=== PATIENT | female | born 1970 | race Caucasian/White ===

== ENCOUNTER 2018-02-15 12:12 | Emergency (ER) | payer OTHER ==
[~2018-02-15] VITALS: Ht 157.5 cm; Wt 52.2 kg
[~2018-02-15 12:12] MED LIST changes: -NITROFURANTOIN50 MG PO
[2018-02-15] MEDS ORDERED: NITROFURANTOIN50 MG PO (12:22)
[2018-02-15] MEDS ORDERED: OXYCONTIN60 MG PO (12:22)
== END 2018-02-15 12:27 | disposition home or self-care (01) ==
LOC: ED 12:12
DX: M25.532 Pain in left wrist (principal); X58.XXXA Exposure to other specified factors, initial encounter; Y93.01 Activity, walking, marching and hiking

== ENCOUNTER → 2018-02-15 | Emergency (ER) | payer OTHER ==
[~2018-02-15] VITALS: Ht 157.5 cm; Wt 52.2 kg
[~2018-02-15] MED LIST: AMLODIPINE BESY10 MG PO; CABERGOLINE0.5 MG PO; COZAAR100 MG PO; CRANBERRY200 MG PO; DILAUDID4 MG PO; FLUNISOLIDE1 SPRAY; KONDREMUL2.5 ML/5 M PO; MOTRIN IB200 MG PO; MULTI VITAMIN1 EACH PO; NITROFURANTOIN50 MG PO; OXYCODONE HCL15 MG PO; OXYCONTIN60 MG PO; OXYCONTIN80 MG PO; SENNA8.6 MG PO
== END | disposition home or self-care (01) ==
LOC: ED 12:38
PROC: 2W3DX1Z Immobilization of Left Lower Arm using Splint (ICD-10-PCS; principal; 2018-02-15)
DX: S52.602A Unspecified fracture of lower end of left ulna, initial encounter for closed fracture (principal); I10 Essential (primary) hypertension; Z88.0 Allergy status to penicillin; Z88.2 Allergy status to sulfonamides; Z79.899 Other long term (current) drug therapy; X58.XXXA Exposure to other specified factors, initial encounter; Y93.01 Activity, walking, marching and hiking
CPT/HCPCS: 29125; 73110; 99283

== ENCOUNTER 2018-04-18 20:20 | Emergency (ER) | payer OTHER ==
[~2018-04-18] VITALS: Ht 157.5 cm; Wt 52.2 kg
--- OUTSIDE RECORDS SUMMARY | ~2018-04-18 | XMS | Encounter Summary ---
Demographics + + + | Address | [address] | | | [place] [address] | + + + | Home Phone | | + + + | Preferred Language | Unknown | + + + | Marital Status | | + + + | Moravian Affiliation | Unknown | + + + | Race | Unknown | + + + | Ethnic Group | Unknown | + + + Author + + + | Author | [facility] | | | and [place] | + + + | Organization | [facility] | | | and [place] | + + + | Address | Unknown | + + + | Phone | Unavailable | + + + Support + + +---------+ + | Name | Relationship | Address | Phone | + + +---------+ + | Maury Crane | ECON | Unknown | | + + +---------+ + Care Team Providers + +------+ + | Care Relief Salesperson Name | Role | Phone | + +------+ + | Shayna Moura MD | PCP | | + +------+ + Reason for Visit + + + | Reason | Comments | + + + | Medication Related | request for call back today about pain medications | + + + Encounter Details +--------+ + + + + | Date | Type | Department | Care Team | Description | +--------+ + + + + | 03/19/ | Telephone | [place] [facility] | Shayna Moura, | Medication Related | | 2018 | | [facility] | [address] [place] [address] | (request for call | | | | [facility] | [place], [place] | back today about | | | | [address] [facility], | [address] | pain medications) | | | | [place] [address] | [phone] | | | | | [phone] | | | +--------+ + + + + Social History + +-------+ +--------+------+ | Tobacco Use | Types | Packs/Day | Years | Date | | | | | Used | | + +-------+ +--------+------+ | Never Smoker | | | | | + +-------+ +--------+------+ + +---+---+---+ | Smokeless Tobacco: | | | | | Never Used | | | | + +---+---+---+ + + +---------+ + | Alcohol Use | Drinks/We | oz/Week | Comments | | | ek | | | + + +---------+ + | No | | | | + + +---------+ + + + + | Sex Assigned at | Date Recorded | | | | + + + | Not on file | | + + + as of this encounter Plan of Treatment +--------+---------+ + + + | Date | Type | Specialty | Care Team | Description | +--------+---------+ + + + | 06/03/ | Office | Primary Care | Sahyna Moura, | | | 2017 | Visit | | [address] [place] [address] | | | | | | [place] | | | | | | [address] | | | | | | [phone] | | | | | | | | +--------+---------+ + + + as of this encounter Visit Diagnoses + + | Diagnosis | + + | Chronic left shoulder pain | + + | Pain in joint, shoulder region | + +"
--- OUTSIDE RECORDS SUMMARY | ~2018-04-18 | XMS | Encounter Summary ---
Demographics + + + | Address | [address] | | | [place] [address] | + + + | Home Phone | | + + + | Preferred Language | Unknown | + + + | Marital Status | | + + + | Christian Affiliation | Unknown | + + + | Race | Unknown | + + + | Ethnic Group | Unknown | + + + Author + + + | Author | [facility] | | | and [place] | + + + | Organization | [facility] | | | and [place] | [...] Team Providers + +------+ + | Care Microgrinder Operator Name | Role | Phone | + +------+ + | Shayna Moura MD | PCP | | + +------+ + Reason for Visit + + + | Reason | Comments | + + + | Medication Refill | | + + + Encounter Details +--------+--------+ + + + | Date | Type | Department | Care Team | Description | +--------+--------+ + + + | 03/25/ | Refill | [place] [facility] | Shayna Moura, | Medication Refill | | 2017 | | [facility] | [address] | | | | | [facility] | [place], [place] | | | | | [address] [place], | [address] | | | | | [place] [address] | [phone] | | | | | [phone] | | | +--------+--------+ + + + Social History + +-------+ [...] 06/03/ | Office | Primary Care | Shayna Moura, | | | 2017 | Visit | | [address] [facility] | | | | | | [place], [place] | | | | | | [address] | | | | | | [phone] | | | | | | | | +--------+---------+ + + + as of this encounter Visit Diagnoses Not on filein this encounter"
--- OUTSIDE RECORDS SUMMARY | ~2018-04-18 | XMS | Encounter Summary ---
Demographics + + + | Address | [address] | | | [place] [address] | + + + | Home Phone | | + + + | Preferred Language | Unknown | + + + | Marital Status | | + + + | Quaker Affiliation | Unknown | + + + | Race | Unknown | + + + | Ethnic Group | Unknown | + + + Author + + + | Author | [facility] | | | and [place] | + + + | Organization | [facility] | | | and [place] [...] Team Providers + +------+ + | Care Med Spa Manager Name | Role | Phone | + +------+ + | Shayna Moura MD | PCP | | + +------+ + Reason for Visit +--------+ + | Reason | Comments | +--------+ + | Other | Broken Wrist | +--------+ + Encounter Details +--------+ + + + + | Date | Type | Department | Care Team | Description | +--------+ + + + + | 02/20/ | Telephone | [facility] [facility] | Shayna Moura, | Other (Broken Wrist | | 2018 | | [facility] | [address] [place] | ) | | | | [facility] [address] | [place], [place] | | | | | [address] [place], | [address] | | | | | [place] [address] | [phone] | | | | | [phone] | | | +--------+ + + + [...] 2017 | Visit | | [address] [facility] | | | | | | [place], [place] | | | | | | [address] | | | | | | [phone] | | | | | | | | +--------+---------+ + + + as of this encounter Visit Diagnoses Not on filein this encounter"
--- OUTSIDE RECORDS SUMMARY | ~2018-04-18 | XMS | Encounter Summary ---
Demographics + + + | Address | [address] | | | [place] [address] | + + + | Home Phone | | + + + | Preferred Language | Unknown | + + + | Marital Status | | + + + | Pentecostal Affiliation | Unknown | + + + | Race | Unknown | + + + | Ethnic Group | Unknown | + + + Author + + + | Author | [facility] | | | and [place] | + + + | Organization | [facility] | | | and [place] [...] Team Providers + +------+ + | Care Program Aide Name | Role | Phone | + +------+ + | Shayna Moura MD | PCP | | + +------+ + Reason for Visit + + + | Reason | Comments | + + + | Medication Refill | | + + + Encounter Details +--------+ + + + + | Date | Type | Department | Care Team | Description | +--------+ + + + + | 03/18/ | Telephone | [facility] | Shayna Moura, | Medication Refill | | 2018 | | [facility] | MD [address] | | | | | [facility] [address] | [place], [place] | | | | | [address] [place], | [address] | | | | | [place] [address] | [phone] | | | | | [phone] | | | +--------+ + + + [...] Care | Shayna Moura, | | | 2018 | Visit | | [address] [place] [address] | | | | | | [place], [place] | | | | | | [address] | | | | | | [phone] | | | | | | | | +--------+---------+ + + + as of this encounter Visit Diagnoses Not on filein this encounter"
--- OUTSIDE RECORDS SUMMARY | ~2018-04-18 | XMS | Encounter Summary ---
Demographics + + + | Address | [address] | | | [place] [address] | + + + | Home Phone | | + + + | Preferred Language | Unknown | + + + | Marital Status | | + + + | Episcopalian Affiliation | Unknown | + + + | Race | Unknown | + + + | Ethnic Group | Unknown | + + + Author + + + | Author | [facility] | | | and [place] | + + + | Organization | [facility] | | | and [place] | + [...] Team Providers + +------+ + | Care Manager Intensive Care Unit Name | Role | Phone | + [...] Description | +--------+--------+ + + + | 03/24/ | Refill | [place] [facility] | Shayna Moura, | Medication Refill | | 2017 | | [facility] | [address] | | | | | [facility] [address] | [place], [place] | | | | | [address] [place], | [address] | | | | | [place] [address] | [phone] | | | | | [phone] | | | +--------+--------+ + + + [...] 2017 | Visit | | [address] [facility] | | | | | | [place], [place] | | | | | | [address] | | | | | | [phone] | | | | | | | | +--------+---------+ + + + as of this encounter Visit Diagnoses Not on filein this encounter"
--- OUTSIDE RECORDS SUMMARY | ~2018-04-18 | XMS | Encounter Summary ---
Demographics + + + | Address | [address] | | | [place] [address] | + + + | Home Phone | | + + + | Preferred Language | Unknown | + + + | Marital Status | | + + + | Sikhism Affiliation | Unknown | + + + | Race | Unknown | + + + | Ethnic Group | Unknown | + + + Author + + + | Author | [facility] | | | and [place] | + + + | Organization | [facility] | | | and [place] [...] Team Providers + +------+ + | Care Pen Tester Name | Role | Phone | + +------+ + | Shayna Moura MD | PCP | | + +------+ + Reason for Visit +--------+ + | Reason | Comments | +--------+ + | Other | Pt expecting call back. | +--------+ + Encounter Details +--------+ + + + + | Date | Type | Department | Care Team | Description | +--------+ + + + + | 03/23/ | Telephone | [place] [facility] | Shayna Moura, | Other (Pt expecting | | 2018 | | [facility] | MD [address] [facility] | call back. ) | | | | [facility]ICAL [facility] | [place], [place] | | | | | [address] [place], | [address] | | | | | [place] [address] | [phone] | | | | | [phone] | | | +--------+ + + + [...] 2017 | Visit | | [address] [place] | | | | | | [place] | | | | | | [address] | | | | | | [phone] | | | | | | | | +--------+---------+ + + + as of this encounter Visit Diagnoses Not on filein this encounter"
--- OUTSIDE RECORDS SUMMARY | ~2018-04-18 | XMS | Encounter Summary ---
Demographics + + + | Address | [address] | | | [place] [address] | + + + | Home Phone | | + + + | Preferred Language | Unknown | + + + | Marital Status | | + + + | Denominational Affiliation | Unknown | + + + | Race | Unknown | + + + | Ethnic Group | Unknown | + + + Author + + + | Author | [facility] | | | and [place] | + + + | Organization | [facility] | | | and [place] [...] Team Providers + +------+ + | Care Material Handling Equipment Stevedore Name | Role | Phone | + [...] Medication Related | | 2018 | | [facility] | [address] [place] [address] | (request for call | | | | MEDICAL CLINIC [address] | [place], [place] | back today about | | | | [address] [facility], | [address] | pain medications) | | | | [place] [address] | [phone] | | | | | [phone] | | | +--------+ + + + [...] | 2017 | Visit | | [address] [place] [address] | | | | | | [place] | | | | | | [address] | | | | | | [phone] | | | | | | | | +--------+---------+ + + + as of this encounter Visit Diagnoses + + | Diagnosis | + + | Chronic left shoulder pain | + + | Pain in joint, shoulder region | + +"
--- OUTSIDE RECORDS SUMMARY | ~2018-04-18 | XMS | Encounter Summary ---
Demographics + + + | Address | [address] | | | [place] [address] | + + + | Home Phone | | + + + | Preferred Language | Unknown | + + + | Marital Status | | + + + | Zoroastrian Affiliation | Unknown | + + + | Race | Unknown | + + + | Ethnic Group | Unknown | + + + Author + + + | Author | [facility] | | | and [place] | + + + | Organization | [facility] | | | and [place] | [...] Team Providers + +------+ + | Care Poultryman Name | Role | Phone | + +------+ + | Shayna Moura MD | PCP | | + +------+ + Reason for Visit + + + | Reason | Comments | + + + | Follow-up | 6 WEEK | + + + Encounter Details +--------+---------+ + + + | Date | Type | Department | Care Team | Description | +--------+---------+ + + + | 02/26/ | Office | [facility] | Shayna Moura, | Chronic left | | 2018 | Visit | [facility] | [address] | shoulder pain | | | | MEDICAL CL[facility] [address] | [place], [place] | (Primary Dx); Closed | | | | [address] [place], | [address] | fracture of left | | | | [place] [address] | [phone] | wrist with routine | | | | [phone] | | healing, subsequent | | | | | | encounter | +--------+---------+ + + + Social History + +-------+ [...] + + + as of this encounter Last Filed Vital Signs + + + + | Vital Sign | Reading | Time Taken | + + + + | Blood Pressure | 140/82 | 02/26/2018 1049 PDT | + + + + | Pulse | 99 | 02/26/20181048 PDT | + + + + | Temperature | 36.8 C (98.2 F) | 02/26/20181048 PDT | + + + + | Respiratory Rate | 18 | 02/26/20181048 PDT | + + + + | Oxygen Saturation | 99% | 02/26/20181048 PDT | + + + + | Inhaled Oxygen | - | - | | Concentration | | | + + + + | Weight | 54.7 kg (120 lb 9.6 | 02/26/20181048 PDT | | | oz) | | + + + + | Height | 157.5 cm (5' 2") | 02/26/2018 1049 PDT | + + + + | Body Mass Index | 22.06 | 02/26/2018 1049 PDT | + + + + in this encounter Instructions Patient Instructions - Shayna Moura MD - 02/26/2018 1100 PDTNo change in medications. Follow up with me in 2 monthsin this encounter Progress Notes Shayna Moura MD - 02/26/2018 1100 PDTFormatting of this note may be different from the original. Patient ID: America Castellanos is a 48 y.o. year old female Chief Complaint: Chief Complaint Patient presents with Follow-up 6 WEEK Assessment 1. Chronic left shoulder pain - oxyCODONE (OXYCONTIN) 60 mg ER abuse-deterrent tablet; Take 1 tablet by mouth 3 times lizzeth ly. Dispense: 84 tablet; Refill: 0 - oxyCODONE (ROXICODONE) 15 mg immediate release tablet; 1 tablet q 4 hours prn Dispense: 168 tablet; Refill: 0 2. Closed fracture of left wrist with routine healing, subsequent encounter Plan:Opioid regimen authorize for 2 more months. She will then follow-up with me to discus s opioid taper. Subjective: HPI She fractured her left wrist in a dog incident. This caused a pause in her physical therap y for her left shoulder. She's been having more trouble sleeping because of the wrist pain. She wanted to temporarily increase the short acting oxycodone. She will plan to follow-up with me in 2 months to discuss an opioid taper. Current Outpatient Prescriptions Medication Sig Dispense Refill amLODIPine (NORVASC) 10 MG tablet TAKE 1 TABLET BY MOUTH EVERY DAY 30 tablet 0 flunisolide (NASALIDE) 25 mcg/nasal spray (0.025%) 2 sprays by Nasal route every 12 mert rs. 25 mL 5 losartan (COZAAR) 100 MG tablet TAKE 1 TABLET BY MOUTH EVERY DAY 30 tablet 11 nitrofurantoin (MACRODANTIN) 50 mg capsule TAKE 1 CAPSULE BY MOUTH EVERY NIGHT AT BEDTI ME 30 capsule 11 oxyCODONE (OXYCONTIN) 60 mg ER abuse-deterrent tablet Take 1 tablet by mouth 3 times da pan. 84 tablet 0 oxyCODONE (ROXICODONE) 15 mg immediate release tablet 1 tablet q 4 hours prn 168 tablet 0 No current facility-administered medications for this visit. Patient Active Problem List Diagnosis Recurrent sinusitis Shoulder pain, left Hypertension Nephrocalcinosis Pain medication agreement History reviewed. No pertinent family history. Social History Social History Marital status: Spouse name: N/A Number of children: N/A Years of education: N/A Occupational History Not on file. Social History Main Topics Smoking status: Never Smoker Smokeless tobacco: Never Used Alcohol use No Drug use: No Sexual activity: Not on file Other Topics Concern Not on file Social History Narrative No narrative on file Electronic chart was reviewed and updated as appropriate including: active problem list, me dication list, allergies, notes from last encounter LUIS EDUARDO Wondered if she should have a bone density test. She still has her ovaries and believes sh sarah is ovulating but has undergone hysterectomy. I do not feel strongly it was necessary at t his point but we may discuss that again on a follow-up visit. Objective: Vitals: BP 140/82 | Pulse 99 | Temp 36.8 C (98.2 F) (Temporal) | Resp 18 | Ht 1.575 m (5' 2 ") | Wt 54.7 kg (120 lb 9.6 oz) | LMP 12/18/2012 | SpO2 99% | ? No | BMI 2 2.06 kg/m General: Well-developed, well-nourished, no acute distress Skin: Anicteric, no rash Neuro: Normal behavior and affect Ana M Moura MDin this encounter Plan of Treatment +--------+---------+ + + + | Date | Type | Specialty | Care Team | Description | +--------+---------+ + + + | 06/03/ | Office | Primary Care | Shayna Moura, | | | 2017 | Visit | | [address] [place] [address] | | | | | | [place] | | | | | | [address] | | | | | | [phone] | | | | | | | | +--------+---------+ + + + as of this encounter Visit Diagnoses + + | Diagnosis | + + | Chronic left shoulder pain - Primary | + + | Pain in joint, shoulder region | + + | Closed fracture of left wrist with routine healing, subsequent encounter | + +
--- OUTSIDE RECORDS SUMMARY | ~2018-04-18 | XMS | Encounter Summary ---
Demographics + + + | Address | [address] | | | [place] [address] | + + + | Home Phone | | + + + | Preferred Language | Unknown | + + + | Marital Status | | + + + | Presybeterian Affiliation | Unknown | + + + | Race | Unknown | + + + | Ethnic Group | Unknown | + + + Author + + + | Author | [facility] | | | and [place] | + + + | Organization | [facility] | | | and [place] [...] Team Providers + +------+ + | Care Office Assistance Name | Role | Phone | + +------+ + | Shayna Moura MD | PCP | | + +------+ + Reason for Visit + + + | Reason | Comments | + + + | Medication Prior | Oxycodone HCL 15 mg | | Authorization | | + + + Encounter Details +--------+ + + + + | Date | Type | Department | Care Team | Description | +--------+ + + + + | 01/26/ | Telephone | [facility] | Shayna Moura, | Medication Prior | | 2018 | | [facility] | [address] | Authorization | | | | MEDICAL CL[facility] [address] | [facility] [place] | (Oxycodone HCL 15 mg | | | | [address] [place], | [address] | ) | | | | [place] [address] | [phone] | | | | | [phone] | | | +--------+ + + + [...] | | 2017 | Visit | | [address] [place] [address] | | | | | | [place] | | | | | | [address] | | | | | | [phone] | | | | | | | | +--------+---------+ + + + as of this encounter Visit Diagnoses Not on filein this encounter"
--- OUTSIDE RECORDS SUMMARY | ~2018-04-18 | XMS | Clinical Summary ---
Demographics + + + | Address | [address] | | | [place] [address] | + + + | Home Phone | | + + + | Preferred Language | Unknown | + + + | Marital Status | | + + + | Restorationist Affiliation | Unknown | + + + | Race | Unknown | + + + | Ethnic Group | Unknown | + + + Author + + + | Author | [facility] | | | and [place] | + + + | Organization | [facility] | | | and [place]ana [...] Team Providers + +------+ + | Care Computing Systems Mechanic Name | Role | Phone | + +------+ + | Shayna Moura MD | PP | | + +------+ + Allergies + + + + + + | Active Allergy | Reactions | Severity | Noted | Comments | | | | | Date | | + + + + + + | Hydrochlorothiazide | Other (See Comments) | | 07/28/20 | | | | | | 17 | | + + + + + + | Lisinopril | Other (See Comments) | | 07/28/20 | Cough | | | | | 17 | | + + + + + + | Morphine | Other (See Comments) | | 07/28/20 | Blurry vision | | | | | 17 | consistently when | | | | | | she takes morphine | | | | | | sulfate | + + + + + + | Penicillins | Rash | High | 01/02/20 | | | | | | 13 | | + + + + + + | Sulfa Antibiotics | Nausea And Vomiting | | 07/28/20 | | | | | | 17 | | + + + + + + Current Medications + + +---------+---------+------+------+-------+ | Prescription | Sig. | Disp. | Refills | Star | End | Statu | | | | | | t | Date | s | | | | | | Date | | | + + +---------+---------+------+------+-------+ | losartan (COZAAR) | TAKE 1 TABLET BY | 30 | 11 | 01/1 | | Activ | | 100 MG tablet | MOUTH EVERY DAY | tablet | | 0/20 | | e | | | | | | 18 | | | + + +---------+---------+------+------+-------+ | flunisolide | 2 sprays by Nasal | 25 mL | 5 | 02/0 | | Activ | | (NASALIDE) 25 | route every 12 | | | 2/20 | | e | | mcg/nasal spray | hours. | | | 18 | | | | (0.025%) | | | | | | | + + +---------+---------+------+------+-------+ | nitrofurantoin | TAKE 1 CAPSULE BY | 30 | 11 | 02/1 | | Activ | | (MACRODANTIN) 50 mg | MOUTH EVERY NIGHT AT | capsule | | 6/20 | | e | | capsule | BEDTIME | | | 18 | | | + + +---------+---------+------+------+-------+ | oxyCODONE | Take 1 tablet by | 84 | 0 | / | | Activ | | (OXYCONTIN) 60 mg ER | mouth 3 times daily. | tablet | | 2/20 | | e | | abuse-deterrent | | | | 18 | | | | tabletIndications: | | | | | | | | Chronic left | | | | | | | | shoulder pain | | | | | | | + + +---------+---------+------+------+-------+ | oxyCODONE | 1 tablet q 4 hours | 168 | 0 | 07/1 | | Activ | | (ROXICODONE) 15 mg | prn | tablet | | 2/20 | | e | | immediate release | | | | 18 | | | | tabletIndications: | | | | | | | | Chronic left | | | | | | | | shoulder pain | | | | | | | + + +---------+---------+------+------+-------+ | amLODIPine | TAKE 1 TABLET BY | 90 | 3 | 07/1 | | Activ | | (NORVASC) 10 MG | MOUTH EVERY DAY | tablet | | 8/20 | | e | | tablet | | | | 18 | | | + + +---------+---------+------+------+-------+ | amLODIPine | TAKE 1 TABLET BY | 30 | 0 | 06/1 | 07/1 | Disco | | (NORVASC) 10 MG | MOUTH EVERY DAY | tablet | | 4/20 | 7/20 | ntinu | | tablet | | | | 18 | 18 | ed | + + +---------+---------+------+------+-------+ | amLODIPine | TAKE 1 TABLET BY | 90 | 1 | 07/1 | 07/1 | Disco | | (NORVASC) 10 MG | MOUTH EVERY DAY | tablet | | 7/20 | 8/20 | ntinu | | tablet | | | | 18 | 18 | ed | + + +---------+---------+------+------+-------+ Active Problems + + | Patient Care Coordination Note | + + | MORPHINE (MS CONTIN) 100MG ER 1 TAB TID #84 / LAST FILLED 05/25/18 / NEXT FILL DUE | | 06/22/18OXYCODONE (ROXICODONE) 15MG IR 1 Q6H PRN #112 / LAST FILLED 05/25/18 / NEXT FILL | | DUE 06/22/18LAST UDS: 05/29/2017 | |LAST UDS: 05/29/2017 | + + + + + | Problem | Noted Date | + + + | Pain medication agreement | 09/15/2017 | + + + | Recurrent sinusitis | 07/28/2017 | + + + + + | Overview: S/p FESS | + + + + + | Shoulder pain, left | 07/28/2017 | + + + + + | Overview: S/p rotator cuff repair 07/11/08, 11/29/15 | + + + + + | Hypertension | 07/28/2017 | + + + | Nephrocalcinosis | 07/28/2017 | + + + Encounters +--------+ + + + + | Date | Type | Specialty | Care Team | Description | +--------+ + + + + | 03/25/ | Refill | | Shayna Moura, | Medication Refill | | 2017 | | | MD | | +--------+ + + + + | 03/24/ | Refill | | Shayna Moura, | Medication Refill | | 2017 | | | MD | | +--------+ + + + + | 03/23/ | Telephone | | Shayna Moura, | Other (Pt expecting | | 2017 | | | MD | call back. ) | +--------+ + + + + | 03/19/ | Refill | Shayna Hernandez, | Medication Refill | | 2018 | | | MD | | +--------+ + + + + | 03/19/ | Telephone | | Shayna Moura, | Medication Related | | 2017 | | | MD | (request for call | | | | | | back today about | | | | | | pain medications) | +--------+ + + + + | 03/18/ | Telephone | | Shayna Moura, | Medication Refill | | 2018 | | | MD | | +--------+ + + + + | 02/26/ | Office | | Shayna Moura, | Chronic left | | 2018 | Visit | | MD | shoulder pain | | | | | | (Primary Dx); Closed | | | | | | fracture of left | | | | | | wrist with routine | | | | | | healing, subsequent | | | | | | encounter | +--------+ + + + + | 02/20/ | Telephone | | Shayna Moura, | Other (Broken Wrist | | 2017 | | | MD | ) | +--------+ + + + + | 02/19/ | Refill | | Shayna Moura, | Medication Refill | 2017 | | | MD | | +--------+ + + + + | 01/26/ | Telephone | | Shayna Moura, | Medication Prior | 2017 | | | MD | Authorization | | | | | | (Oxycodone HCL 15 mg | | | | | | ) | +--------+ + + + + from Last 3 Months Immunizations + + + + | Name | Dates Previously Given | Next Due | + + + + | INFLUENZA PF | 06/19/2012 | | | TRIVALENT(PED/ADOL/A | | | | DULT), PSKT | | | + + + + | TD W/O PRESERVATIVE, | 11/09/2008 | | | (ADOL/ADULT) | | | + + + + Social History + [...] on file | | + + + Last Filed Vital Signs + + + + | Vital Sign | Reading | Time Taken | + + + + | Blood Pressure | 140/82 | 02/26/2018 1049 PDT | + + + + | Pulse | 99 | 02/26/2018 1049 PDT | + + [...] Height | 157.5 cm (5' 2") | 02/26/20181048 PDT | + + + + | Body Mass Index | 22.06 | 02/26/2018 1049 PDT | + + + + Plan of Treatment +--------+---------+ + + + | Date | Type | Specialty | Care Team | Description | +--------+---------+ + + + | 06/03/ | Office | | Shayna Moura, | | | 2018 | Visit | | [address] [place] [address] | | | | | | [place] | | | | | | [address] | | | | | | [phone] | | | | | | | | +--------+---------+ + + + + + + + + | Health Maintenance | Due Date | Last Done | Comments | + + + + + | PRIMARY CARE | | | | | OUTREACH-MODERATE | 8 | | | | RISK EVERY 1 YEAR | | | | + + + + + | Cervical Cancer | | | | | Screening (Pap) | 8 | | | + + + + + | Vaccine: | | 11/09/2008 | | | Dtap/Tdap/Td (1 - | 9 | | | | Tdap) | | | | + + + + + | BREAST CANCER | | | | | SCREENING (MAMM Q2 | 8 | | | | YEARS 50-74) | | | | + + + + + | Colorectal Cancer | | | | | Screening | 8 | | | | (Colonoscopy) | | | | + + + + + | Vaccine: Influenza | | 06/19/2012 | | | (#1) | 8 | | | + + + + + Procedures + +--------+ + + + | Procedure Name | Priori | Date/Time | Associated Diagnosis | Comments | | | ty | | | | + +--------+ + + + | IMAGING REPORT - | | 03/16/2018 | | Results for this | | EXTERNAL SCAN | | 0000 PDT | | procedure are in the | | | | | | results section. | + +--------+ + + + from Last 3 Months Results IMAGING REPORT - EXTERNAL SCAN (03/16/2018) + + + | Narrative | Performed At | + + + | Ordered by an | | | unspecified provider. | | + + + from Last 3 Months Insurance + +--------+ +------+ +---------+ | Payer | Benefi | Subscriber | Type | Phone | Address | | | t Plan | ID | | | | | | / | | | | | | | Group | | | | | + +--------+ +------+ +---------+ | BCBS | BCBS | [id number] | PPO | | | | | OUT OF | 9 | | | | | | STATE | | | | | | | PPO | | | | | + +--------+ +------+ +---------+ | [place] | [place] | [id number] | PPO | [phone] | | | [place]OUR | | | [phone] | | | | E | | | | | | | FIRST | | | | | | | CHOICE | | | | | + +--------+ +------+ +---------+ + +--------+ +--------+ + + | Guarantor Name | Accoun | Relation to | Date | Phone | Billing Address | | | t Type | Patient | of | | | | | | | | | | + +--------+ +--------+ + + | LANNY CASTELLANOS | Person | Self [birth year] | Home: | [address] | | [place] | al/Fam | | 1970 | [phone] | [place] [address] | | | pan | | | 1987 | | + +--------+ +--------+ + + | LANNY CASTELLANOS | Person | Self | [birth year] | Home: | [address] | | [place] | al/Jamie | | 1969 | [phone] | [place] [address] | | | pan | | | 1987 | | + +--------+ +--------+ + +
--- OUTSIDE RECORDS SUMMARY | ~2018-04-18 | XMS | Encounter Summary ---
Demographics + + + | Address | [address] | | | [place] [address] | + + + | Home Phone | | + + + | Preferred Language | Unknown | + + + | Marital Status | | + + + | Jainism Affiliation | Unknown | + + + | Race | Unknown | + + + | Ethnic Group | Unknown | + + + Author + + + | Author | [facility] | | | and [place]ana | + + + | Organization | [facility] | | | and Milanana [...] Team Providers + +------+ + | Care Supervisor Frame Assembly Name | Role | Phone | + [...] | [facility] | [address] [place] | ) | | | | MEDICAL CL[facility] [address] | [place], [place] | | | | | [address] [place], | [address] | | | | | [place] [address] | [phone] | | | | | [phone] | | | +--------+ + + + [...] 2017 | Visit | | [address] [facility] | | | | | | [place], [place] | | | | | | [address] | | | | | | [phone] | | | | | | | | +--------+---------+ + + + as of this encounter Visit Diagnoses Not on filein this encounter"
--- OUTSIDE RECORDS SUMMARY | ~2018-04-18 | XMS | Encounter Summary ---
Demographics + + + | Address | [address] | | | [place] [address] | + + + | Home Phone | | + + + | Preferred Language | Unknown | + + + | Marital Status | | + + + | Muslim Affiliation | Unknown | + + + | Race | Unknown | + + + | Ethnic Group | Unknown | + + + Author + + + | Author | [facility] | | | and [place]ana | + + + | Organization | [facility] | | | and [...] Team Providers + +------+ + | Care Die Storage Clerk Name | Role | Phone | + [...] | | [address] [place], | [address] | fracture of left | | | | [place] [address] | [phone] | wrist with routine | | | | [phone] | | healing, subsequent | | | [...] | 2017 | Visit | | [address] [place] [address] | | | | | | [place] | | | | | | [address] | | | | | | [phone] | | | | | | | [...]
--- OUTSIDE RECORDS SUMMARY | ~2018-04-18 | XMS | Encounter Summary ---
Demographics + + + | Address | [address] | | | [place] [address] | + + + | Home Phone | | + + + | Preferred Language | Unknown | + + + | Marital Status | | + + + | Rastafarian Affiliation | Unknown | + + + | Race | Unknown | + + + | Ethnic Group | Unknown | + + + Author + + + | Author | [facility] | | | and [place]ana | + + + | Organization | [facility] | | | and Milanana [...] Team Providers + +------+ + | Care Safety Deposit Supervisor Name | Role | Phone | + [...] Refill | | 2017 | | [facility] | [address] | | | | | MEDICAL CLIN[facility] [address] | [place], [place] | | | | | [address] [place], | [address] | | | | | [place] [address] | [phone] | | | | | [phone] | | | +--------+--------+ + + + [...] 2017 | Visit | | [address] [facility] | | | | | | [place], [place] | | | | | | [address] | | | | | | [phone] | | | | | | | | +--------+---------+ + + + as of this encounter Visit Diagnoses Not on filein this encounter"
--- OUTSIDE RECORDS SUMMARY | ~2018-04-18 | XMS | Encounter Summary ---
Demographics + + + | Address | [address] | | | [place] [address] | + + + | Home Phone | | + + + | Preferred Language | Unknown | + + + | Marital Status | | + + + | Quaker Affiliation | Unknown | + + + | Race | Unknown | + + + | Ethnic Group | Unknown | + + + Author + + + | Author | [facility] | | | and [place]ana | + + + | Organization | [facility] | | | and [...] Team Providers + +------+ + | Care Weigh Boss Name | Role | Phone | + [...] Description | +--------+--------+ + + + | 02/19/ | Refill | [place] | Shayna Moura, | Medication Refill | | 2017 | | [facility] | [address] | | | | | MEDICAL CL[facility] | [place], [place] | | | | | [address] [place], | [address] | | | | | [place] [address] | [phone] | | | | | [phone] | | | +--------+--------+ + + + [...] 2017 | Visit | | [address] [facility] | | | | | | [place], [place] | | | | | | [address] | | | | | | [phone] | | | | | | | | +--------+---------+ + + + as of this encounter Visit Diagnoses Not on filein this encounter"
--- OUTSIDE RECORDS SUMMARY | ~2018-04-18 | XMS | Encounter Summary ---
Demographics + + + | Address | [address] | | | [place] [address] | + + + | Home Phone | | + + + | Preferred Language | Unknown | + + + | Marital Status | | + + + | Congregational Affiliation | Unknown | + + + | Race | Unknown | + + + | Ethnic Group | Unknown | + + + Author + + + | Author | [facility] | | | and [place]ana | + + + | Organization | [facility] | | | and [...] Team Providers + +------+ + | Care Dental Hygiene Instructor Name | Role | Phone | + [...] Description | +--------+--------+ + + + | 03/19/ | Refill | [place] | Shayna Moura, | Medication Refill | | 2017 | | [facility] | [address] | | | | | MEDICAL CLIN[facility] [address] | [place], [place] | | | | | [address] [place], | [address] | | | | | [place] [address] | [phone] | | | | | [phone] | | | +--------+--------+ + + + [...] 2017 | Visit | | [address] [facility] | | | | | | [place], [place] | | | | | | [address] | | | | | | [phone] | | | | | | | | +--------+---------+ + + + as of this encounter Visit Diagnoses + + | Diagnosis | + + | Chronic left shoulder pain | + + | Pain in joint, shoulder region | + +"
--- OUTSIDE RECORDS SUMMARY | ~2018-04-18 | XMS | Encounter Summary ---
Demographics + + + | Address | [address] | | | [place] [address] | + + + | Home Phone | | + + + | Preferred Language | Unknown | + + + | Marital Status | | + + + | Adventism Affiliation | Unknown | + + + | Race | Unknown | + + + | Ethnic Group | Unknown | + + + Author + + + | Author | [facility] | | | and [place]ana | + + + | Organization | [facility] | | | and [...] Team Providers + +------+ + | Care Post Anesthesia Nurse Name | Role | Phone | + [...] [facility] | MD [address] [facility] | call back. ) | | | | MEDICAL CLINIC [address] | [place], [place] | | | | | [address] [place], | [address] | | | | | [place] [address] | [phone] | | | | | [phone] | | | +--------+ + + + [...] | Visit | | [address] [place] | | | | | | [place] | | | | | | [address] | | | | | | [phone] | | | | | | | | +--------+---------+ + + + as of this encounter Visit Diagnoses Not on filein this encounter"
--- OUTSIDE RECORDS SUMMARY | ~2018-04-18 | XMS | Encounter Summary ---
Demographics + + + | Address | [address] | | | [place] [address] | + + + | Home Phone | | + + + | Preferred Language | Unknown | + + + | Marital Status | | + + + | Moravian Affiliation | Unknown | + + + | Race | Unknown | + + + | Ethnic Group | Unknown | + + + Author + + + | Author | [facility] | | | and [place] | + + + | Organization | [facility] | | | and [...] Team Providers + +------+ + | Care Software Development Advisor Name | Role | Phone | + [...] Refill | | 2017 | | [facility] | [address] | | | | | MEDICAL CLIN[address] | [place], [place] | | | | | [address] [place], | [address] | | | | | [place] [address] | [phone] | | | | | [phone] | | | +--------+--------+ + + + [...] 2017 | Visit | | [address] [facility] | | | | | | [place], [place] | | | | | | [address] | | | | | | [phone] | | | | | | | | +--------+---------+ + + + as of this encounter Visit Diagnoses Not on filein this encounter"
--- OUTSIDE RECORDS SUMMARY | ~2018-04-18 | XMS | Encounter Summary ---
Demographics + + + | Address | [address] | | | [place] [address] | + + + | Home Phone | | + + + | Preferred Language | Unknown | + + + | Marital Status | | + + + | Christianity Affiliation | Unknown | + + + | Race | Unknown | + + + | Ethnic Group | Unknown | + + + Author + + + | Author | [facility] | | | and [place]ana | + + + | Organization | [facility] | | | and [place]ana | [...] Team Providers + +------+ + | Care Geographic Information Systems Engineer Name | Role | Phone | + [...] | [facility] | [address] | Authorization | | | | MEDICAL CLINIC [address] | [facility], [place] | (Oxycodone HCL 15 mg | | | | [address] [place], | [address] | ) | | | | [place] [address] | [phone] | | | | | [phone] | | | +--------+ + + + [...] | | 2017 | Visit | | [address] [place] [address] | | | | | | [place] | | | | | | [address] | | | | | | [phone] | | | | | | | | +--------+---------+ + + + as of this encounter Visit Diagnoses Not on filein this encounter"
--- OUTSIDE RECORDS SUMMARY | ~2018-04-18 | XMS | Encounter Summary ---
Demographics + + + | Address | [address] | | | [place] [address] | + + + | Home Phone | | + + + | Preferred Language | Unknown | + + + | Marital Status | | + + + | Sabianism Affiliation | Unknown | + + + | Race | Unknown | + + + | Ethnic Group | Unknown | + + + Author + + + | Author | [facility] | | | and [place]ana | + + + | Organization | [facility] | | | and [place]ana [...] Team Providers + +------+ + | Care Neckties Painter Name | Role | Phone | + [...] Refill | | 2017 | | [facility] | [address] | | | | | MEDICAL CLIN[address] | [place], [place] | | | | | [address] [place], | [address] | | | | | [place] [address] | [phone] | | | | | [phone] | | | +--------+--------+ + + + [...] Visit | | [address] [facility] | | | | | | [place], [place] | | | | | | [address] | | | | | | [phone] | | | | | | | | +--------+---------+ + + + as of this encounter Visit Diagnoses + + | Diagnosis | + + | Chronic left shoulder pain | + + | Pain in joint, shoulder region | + +"
--- OUTSIDE RECORDS SUMMARY | ~2018-04-18 | XMS | Clinical Summary ---
Demographics + + + | Address | [address] | | | [place] [address] | + + + | Home Phone | | + + + | Preferred Language | Unknown | + + + | Marital Status | | + + + | Methodist Affiliation | Unknown | + + + | Race | Unknown | + + + | Ethnic Group | Unknown | + + + Author + + + | Author | [facility] | | | and [place]ana | + + + | Organization | [facility] | | | and [place]ana | [...] Team Providers + +------+ + | Care Director Perioperative Name | Role | Phone | + [...] | 2018 | Visit | | [address] [place] [address] | | | | | | [place] | | | | | | [address] | | | | | | [phone] | | | | | | | [...] +------+ +---------+ | BCBS | BCBS | [id number] | PPO | | | | | OUT OF | 9 | | | | | | STATE | | | | | | | PPO | | | | | + +--------+ +------+ +---------+ | [place] | [place] | [id number] | PPO | [phone] | | [...] | 1970 | [phone] | [place] [address] | | | pan | | | 1987 | | + +--------+ +--------+ + + | LANNY CASTELLANOS | Person | Self | [birth year] | Home: | [address] | | [place] | al/[place]ie | | 1969 | [phone] | [place] [address] | | | pan | | | 1987 | | + +--------+ +--------+ + +
--- OUTSIDE RECORDS SUMMARY | ~2018-04-18 | XMS | Encounter Summary ---
Demographics + + + | Address | [address] | | | [place] [address] | + + + | Home Phone | | + + + | Preferred Language | Unknown | + + + | Marital Status | | + + + | Mandaen Affiliation | Unknown | + + + | Race | Unknown | + + + | Ethnic Group | Unknown | + + + Author + + + | Author | [facility] | | | and [place] | + + + | Organization | [facility] | | | and Milanana [...] Team Providers + +------+ + | Care Hospice Bereavement Coordinator Name | Role | Phone | + [...] | | [address] [place], | [address] | | | | | [place] [address] | [phone] | | | | | [phone] | | | +--------+ + + + [...] | 2018 | Visit | | [address] [place] [address] | | | | | | [place], [place] | | | | | | [address] | | | | | | [phone] | | | | | | | | +--------+---------+ + + + as of this encounter Visit Diagnoses Not on filein this encounter"
--- OUTSIDE RECORDS SUMMARY | ~2018-04-18 | XMS | Encounter Summary ---
Demographics + + + | Address | [address] | | | [place] [address] | + + + | Home Phone | | + + + | Preferred Language | Unknown | + + + | Marital Status | | + + + | Synagogue Affiliation | Unknown | + + + | Race | Unknown | + + + | Ethnic Group | Unknown | + + + Author + + + | Author | [facility] | | | and [place]ana | + + + | Organization | [facility] | | | and [place]ana [...] Team Providers + +------+ + | Care Power Wheelchair Mechanic Name | Role | Phone | [...] Refill | | 2017 | | [facility] | [address] | | | | | MEDICAL CLIN[address] | [place], [place] | | | | | [address] [place], | [address] | | | | | [place] [address] | [phone] | | | | | [phone] | | | +--------+--------+ + + + [...] [place] | | | | | | [address] | | | | | | [phone] | | | | | | | | +--------+---------+ + + + as of this encounter Visit Diagnoses Not on filein this encounter"
[~2018-04-18 20:20] MED LIST changes: +NITROFURANTOIN50 MG PO
== END 2018-04-18 22:11 | disposition home or self-care (01) ==
LOC: ED 20:20
DX: S93.401A Sprain of unspecified ligament of right ankle, initial encounter (principal); S50.02XA Contusion of left elbow, initial encounter; Z88.0 Allergy status to penicillin; Z88.2 Allergy status to sulfonamides; Z88.5 Allergy status to narcotic agent; Z79.899 Other long term (current) drug therapy; X50.9XXA Other and unspecified overexertion or strenuous movements or postures, initial encounter; W19.XXXA Unspecified fall, initial encounter
CPT/HCPCS: 73080; 73610; 99283